=== PATIENT | female | born 1950 | race Caucasian/White ===

== ENCOUNTER → 2016-12-09 | Outpatient (CLI) | payer MEDICARE ==
[2016-12-09 15:52] LABS: APPEARANCE,URINE CLEAR; BILIRUBIN,URINE NEGATIVE (NEGATIVE); GLUCOSE, URINE NEGATIVE (NEGATIVE); KETONES,URINE NEGATIVE (NEGATIVE); LEUKOCYTE ESTERASE,URINE SMALL (NEGATIVE); NITRITE,URINE NEGATIVE (NEGATIVE); PROTEIN,URINE 100 mg/dL (NEGATIVE); URINE SPECIFIC GRAVITY 1.016; UROBILINOGEN,URINE NEGATIVE mg/dL (<2.0)
[2016-12-09 15:52] LABS: HEMOGLOBIN 12.7 g/dL (12.0-15.5); HGB HCT DIFFERENCE 0.1; MEAN CORPUSCULAR HEMOGLOBIN 29.8 pg (27.0-33.4); MEAN CORPUSCULAR HGB CONC 33.4 g/dL (32.0-36.0); MEAN CORPUSCULAR VOLUME 89 fl (80-97); RED BLOOD COUNT 4.25 10^6/uL (3.72-5.28); RED CELL DISTRIBUTION WIDTH 13.4 % (11.5-14.0); WHITE BLOOD COUNT 7.9 10^3/uL (4.0-10.5)
[2016-12-09 16:11] LABS: ANION GAP 14 (5-19); BLOOD UREA NITROGEN 23 mg/dL (7-20); CALCIUM 10.5 mg/dL (8.4-10.2); CARBON DIOXIDE 29 mmol/L (22-30); CHLORIDE 98 mmol/L (98-107); CREATININE RESULT 1.73 mg/dL (0.52-1.25); GLUCOSE 227 mg/dL (75-110); POTASSIUM 3.8 mmol/L (3.6-5.0); SODIUM 141.3 mmol/L (137-145)
--- NOTE | 2016-12-10 12:33 | EKG REPORT ---
SEVERITY:- ABNORMAL ECG - SINUS RHYTHM NONSPECIFIC T ABNORMALITIES, DIFFUSE LEADS LVH : Confirmed by: Rose Marie Puri 10-Dec-2016 12:31:55
== END ==
LOC: OD 14:38
PROVIDERS: ATTEND Orthopaedic Surgery
DX: Z01.818 Encounter for other preprocedural examination (principal); Z01.810 Encounter for preprocedural cardiovascular examination; Z01.811 Encounter for preprocedural respiratory examination; E11.9 Type 2 diabetes mellitus without complications; M17.12 Unilateral primary osteoarthritis, left knee; Z79.899 Other long term (current) drug therapy
CPT/HCPCS: 36415; 71020; 80048; 81001; 83036; 85027; 93005; 93010

== ENCOUNTER 2017-01-03 09:58 | Inpatient (IN) | payer MEDICARE ==
[~2017-01-03 09:58] MED LIST: BUPIVACAINE INJ/PF LIPOSOME/PF 266 MG/20 ML SDV IJ PRN; CEFAZOLIN INJ 1 GM VIAL IV PRN; GLYCOPYRROLATE INJ 0.4 MG/2 ML VIAL ONE; IBUPROFEN 800 MG in NORMAL SALINE 250 ML IV PRN; LACTATED RINGERS 1000 ML IV PRN; LANSOPRAZOLE 15 MG TAB.RAP.DR PO PRN; LIDOCAINE 0.5% INJ-PF (5 MG/ML) 50 ML SDV SUBCUT PRN; LIDOCAINE 2% INJ-PF (20 MG/ML) 10 ML AMPUL ONE; OXYCODONE HCL SR 10 MG TABLET PO PRN; SCOPOLAMINE HYDROBROMIDE 1.5 MG PATCH.TD72 TOP PRN; VANCOMYCIN HCL 1,000 MG in DEXTROSE 5%-WATER 250 ML IV PRN
[2017-01-03] MEDS ORDERED: (PENDING PHARMACY ID) (Melatonin [Melatonin] 10 MG) PO SCH (10:00)
[2017-01-03] MEDS ORDERED: FENTANYL CITRATE INJ/PF 100 MCG/2 ML AMPUL ONE (12:24)
[2017-01-03] MEDS ORDERED: MIDAZOLAM 2 MG/2 ML INJ ONE (12:25)
[2017-01-03] MEDS ORDERED: TRANEXAMIC ACID INJ/PF 1,000 MG/10 ML SDV IV ONE ×3 (12:25→21:30)
[2017-01-03] MEDS ORDERED: PROPOFOL INJ 200 MG/20 ML VIAL IV ONE (12:25)
[2017-01-03] MEDS ORDERED: DEXMEDETOMIDINE INJ 80 MCG/20 ML VIAL IV ONE (12:26)
[2017-01-03] MEDS ORDERED: BUPIVACAINE INJ/PF LIPOSOME/PF 266 MG/20 ML SDV ONE (12:58)
[2017-01-03] MEDS ORDERED: THROMBIN (BOVINE) 5000 UNIT EPITAXIS KIT ONE (12:58)
[2017-01-03] MEDS ORDERED: THROMBIN (BOVINE) TOPICAL 20000 UNIT VIAL ONE (12:58)
[2017-01-03] MEDS ORDERED: MEPERIDINE HCL/PF INJ 25 MG/1 ML DISP.SYRIN IV PRN (14:24)
[2017-01-03] MEDS ORDERED: FENTANYL CITRATE INJ/PF 100 MCG/2 ML AMPUL IV PRN ×3 (14:24)
[2017-01-03] MEDS ORDERED: OXYCODONE-ACETAMINOPHEN 5-325 MG TABLET PO PRN ×2 (14:24)
[2017-01-03] MEDS ORDERED: DIPHENHYDRAMINE HCL 50 MG/ML VIAL IV PRN ×2 (14:24→15:11)
[2017-01-03] MEDS ORDERED: MORPHINE SULFATE 10 MG/ML INJ IV PRN ×4 (14:24→15:11)
[2017-01-03] MEDS ORDERED: PROMETHAZINE HCL INJ 25 MG/1 ML VIAL IV PRN ×2 (14:24)
[2017-01-03] MEDS ORDERED: ACYCLOVIR 800 MG TABLET PO PRN (15:09)
[2017-01-03] MEDS ORDERED: UBIDECARENONE 100 MG PO PRN (15:09)
--- NOTE | 2017-01-03 15:09 | Operative Report ---
Operative Report DATE OF SURGERY: 01/03/17 PREOPERATIVE DIAGNOSIS: Left hip arthrosis OPERATION: Left hip arthroplasty SURGEON: GABRIELLE QUINTERO ANESTHESIA: Spinal TISSUE REMOVED OR ALTERED: Bone to pathology ESTIMATED BLOOD LOSS: 150 PROCEDURE: Implants used: Femur: Striker #5 Accolade to stem Acetabular shell:, 56 mm hemispherical shell Liner:, 36 mm flat cross-link polyethylene liner Head:. 36 mm chrome cobalt head +0 neck extension The patient is placed in a right lateral decubitus position on the operating table. The left lower extremity and hindquarter is prepped and draped in a sterile fashion. A curvilinear incision was made over the greater trochanter a posterior approach the hip was taken. The femoral head is dislocated and the femoral neck transected using an oscillating saw. Attention was next turned to the acetabulum. Soft tissues cleared off the acetabulum using electrocautery. The acetabulum was then prepared using a series of hemispherical reamers until a 55 millimeters reamer is seated. Subsequently a 56 millimeters Jacklyn titanium hemispherical shell is impacted into position and secured with one screw. A standard flat 36 millimeters cross- link liner is impacted into the shell. Attention was next turned to the femur. Access is gained to the femoral canal using a box osteotome to the piriformis fossa. The femur is then prepared using a series of broaches until a number 5 broach is seated. A trial reduction was now performed using a 36 millimeters head with, and standard neck. Preoperative leg length was recreated and is excellent anterior posterior stability. A decision was made to proceed with the above construct. All trial implants were removed. The wound is irrigated with pulsed lavage. A number 5 stem is impacted into the femoral canal. A trial reduction was again performed with a 36 mm head and a standard neck. Findings as previously. The hip was dislocated one last time and the final chrome-cobalt head is impacted onto the trunnion. The hip was reduced. Wound is copiously irrigated with pulsed lavage. Sent closed in layers using interrupted Vicryl followed by alfa. A sterile dressing is applied and the patient's returned to recovery room in satisfactory patient.
[2017-01-03] MEDS ORDERED: RINGERS SOLUTION,LACTATED 1,000 ML IV PRN (15:11)
[2017-01-03] MEDS ORDERED: ACETAMINOPHEN 325 MG TABLET PO PRN (15:11)
[2017-01-03] MEDS ORDERED: ZOLPIDEM TARTRATE 5 MG TABLET PO PRN (15:11)
[2017-01-03] MEDS ORDERED: ONDANSETRON 4 MG TAB.RAPDIS PO PRN (15:11)
[2017-01-03] MEDS ORDERED: ONDANSETRON HCL INJ/PF 4 MG/2 ML SDV IV PRN (15:11)
[2017-01-03] MEDS ORDERED: MAG HYDROX/AL HYDROX/SIMETH SUSP 30 ML UDCUP PO PRN (15:11)
[2017-01-03] MEDS ORDERED: MORPHINE SULFATE 10 MG/ML INJ IM PRN (15:11)
[2017-01-03] MEDS ORDERED: (PENDING PHARMACY ID) (Metformin Hcl [Metformin Hcl Er] 2,000 MG) PO SCH (15:15)
[2017-01-03] MEDS ORDERED: DEXTROSE 50%-WATER SYRINGE 12.5 GM/25 ML DOSE IV PRN (15:59)
[2017-01-03] MEDS ORDERED: GLUCAGON,HUMAN RECOMB 1 MG INJ IM PRN (15:59)
[2017-01-03] MEDS ORDERED: DEXTROSE 40% GEL 15 GM TUBE PO PRN (15:59)
[2017-01-03] MEDS ORDERED: INSULIN LISPRO 100 UNIT/ML 3 ML VIAL SUBCUT PRN (15:59)
[2017-01-03] MEDS ORDERED: DEXTROSE 40% GEL 15 GM TUBE X 2 PO PRN (15:59)
[2017-01-03] MEDS ORDERED: DEXTROSE 50%-WATER SYRINGE 25 GM/50 ML DOSE IV PRN (15:59)
[2017-01-03] MEDS ORDERED: NIACIN 500 MG PO SCH (18:00)
[2017-01-03] MEDS ORDERED: ASCORBIC ACID 400 MG PO SCH (18:00)
[2017-01-03] MEDS ORDERED: CARVEDILOL 12.5 MG TABLET PO SCH (18:00)
[2017-01-03] MEDS ORDERED: CINNAMON BARK 1000 MG PO SCH (18:00)
[2017-01-03] MEDS ORDERED: (PENDING PHARMACY ID) (Losartan/Hydrochlorothiazide [Hyzaar 100-25 Tablet] 1 EACH) PO SCH (18:00)
[2017-01-03] MEDS: OXYCODONE HCL IR 5 MG TABLET PO PRN (20:55)
[2017-01-03] MEDS: NIACIN 500 MG TABLET.SA PO SCH (21:43)
[2017-01-03] MEDS: ASCORBIC ACID 500 MG TABLET PO SCH (21:44)
[2017-01-03] MEDS: ATORVASTATIN CALCIUM 80 MG TABLET PO SCH (21:44)
[2017-01-03] MEDS: HYDROCHLOROTHIAZIDE 25 MG TABLET PO SCH (21:45)
[2017-01-03] MEDS: SENNOSIDES/DOCUSATE 8.6-50 MG 1 EACH TABLET PO SCH (21:45)
[2017-01-03] MEDS: OXYCODONE HCL SR 10 MG TABLET PO SCH (21:45)
[2017-01-03] MEDS: CARVEDILOL 12.5 MG TABLET PO SCH (21:46)
[2017-01-03] MEDS: CYANOCOBALAMIN (VITAMIN B-12) 1,000 MCG TABLET PO SCH (21:46)
[2017-01-03] MEDS: LOSARTAN POTASSIUM 50 MG TABLET PO SCH (21:47)
[2017-01-03] MEDS: MAGNESIUM OXIDE 400 MG TABLET PO SCH (21:47)
[2017-01-03] MEDS: RIVAROXABAN 10 MG TABLET PO SCH (21:49)
[2017-01-03] MEDS: IBUPROFEN 800 MG in NORMAL SALINE 250 ML IV SCH (21:49)
[2017-01-04] MEDS ORDERED: VANCOMYCIN HCL 1,000 MG in DEXTROSE 5%-WATER 250 ML IV ONE (03:00)
[2017-01-04] MEDS: IBUPROFEN 800 MG in NORMAL SALINE 250 ML IV SCH ×3 (05:20→22:01)
[2017-01-04 06:29] LABS: MEAN CORPUSCULAR HEMOGLOBIN 30.3 pg (27.0-33.4); MEAN CORPUSCULAR HGB CONC 34.4 g/dL (32.0-36.0); MEAN CORPUSCULAR VOLUME 88 fl (80-97); RED BLOOD COUNT 3.29 10^6/uL (3.72-5.28); RED CELL DISTRIBUTION WIDTH 13.4 % (11.5-14.0)
[2017-01-04] MEDS: LANSOPRAZOLE 30 MG TAB.RAP.DR PO SCH (06:41)
[2017-01-04 06:52] LABS: ANION GAP 10 (5-19); BLOOD UREA NITROGEN 13 mg/dL (7-20); CALCIUM 9.5 mg/dL (8.4-10.2); CARBON DIOXIDE 28 mmol/L (22-30); CHLORIDE 101 mmol/L (98-107); CREATININE RESULT 1.06 mg/dL (0.52-1.25); GLUCOSE 148 mg/dL (75-110); SODIUM 138.9 mmol/L (137-145)
[2017-01-04 06:55] LABS: POTASSIUM 2.9 mmol/L (3.6-5.0)
--- NOTE | 2017-01-04 06:58 | PDOC PROGRESS REPORT ---
Subjective Progress Note for:: 01/04/17 Subjective:: doing well pOd1 Physical Exam Vital Signs: Temp Pulse Resp BP Pulse Ox 100.0 F 97 17 135/62 H 97 01/04/17 03:00 01/04/17 03:00 01/04/17 03:00 01/04/17 03:00 01/04/17 03:00 Intake & Output 01/02/17 01/03/17 01/04/17 07:59 07:59 07:59 Intake Total 6368 Output Total 4475 Balance 1893 Weight 176 lb 9.444 oz General appearance: PRESENT: no acute distress Respiratory exam: PRESENT: clear to auscultation eyad Cardiovascular exam: ABSENT: diastolic murmur, irregular rhythm, systolic murmur GI/Abdominal exam: ABSENT: mass, organolmegaly, tenderness Extremities exam: ABSENT: pedal edema Neurological exam: PRESENT: oriented to situation Psychiatric exam: PRESENT: appropriate affect Results Laboratory Results: 01/04/17 05:37 01/03/17 01/03/17 01/03/17 10:58 10:58 10:58 WBC RBC Hgb Hct MCV MCH MCHC RDW Plt Count Potassium 3.5 L Glucose 145 H Blood Type A POSITIVE Antibody Screen NEGATIVE 01/04/17 05:37 WBC 9.0 RBC 3.29 L Hgb 10.0 L Hct 29.0 L MCV 88 MCH 30.3 MCHC 34.4 RDW 13.4 Plt Count 185 Potassium Glucose Blood Type Antibody Screen Abnormal - 24 hr 01/03/17 01/03/17 01/03/17 10:58 10:58 22:28 RBC Hgb Hct Potassium 3.5 L Glucose 145 H POC Glucose 169 H 01/04/17 01/04/17 05:37 05:38 RBC 3.29 L Hgb 10.0 L Hct 29.0 L Potassium Glucose POC Glucose 157 H Impressions: Pelvis X-Ray 01/03/17 15:12 IMPRESSION: SATISFACTORY POSTOPERATIVE PELVIS. Assessment & Plan - Diagnosis (1) Type 2 diabetes mellitus without complications Qualifiers: Diabetes mellitus continuous churn buttermaker insulin use: without continuous churn buttermaker use Qualified Code(s): E11.9 - Type 2 diabetes mellitus without complications Is this a current diagnosis for this admission?: YesPlan: resume metformin (2) Essential (primary) hypertension Is this a current diagnosis for this admission?: YesPlan: continue meds
--- NOTE | 2017-01-04 07:03 | PDOC PROGRESS REPORT ---
Subjective Progress Note for:: 01/04/17 Subjective:: Patient with minor complaints of discomfort. Physical Exam Vital Signs: Temp Pulse Resp BP Pulse Ox 37.8 C 97 17 135/62 H 97 01/04/17 03:00 01/04/17 03:00 01/04/17 03:00 01/04/17 03:00 01/04/17 03:00 Intake & Output 01/03/17 01/04/17 01/05/17 06:59 06:59 06:59 Intake Total 6368 Output Total 4475 Balance 1893 Weight 80.1 kg General appearance: PRESENT: no acute distress Head exam: PRESENT: normocephalic Eye exam: PRESENT: EOMI Respiratory exam: PRESENT: unlabored Cardiovascular exam: PRESENT: RRR Pulses: PRESENT: +1 pedal pulses bilateral Vascular exam: PRESENT: normal capillary refill GI/Abdominal exam: PRESENT: soft Rectal exam: PRESENT: deferred Extremities exam: PRESENT: other - Left hip dressing clean dry and intact. Leg lengths equal. Distal neurovascular examinations intact. Neurological exam: PRESENT: alert, awake, oriented to person, oriented to place , oriented to time, oriented to situation. ABSENT: motor sensory deficit Psychiatric exam: PRESENT: appropriate affect, normal mood. ABSENT: homicidal ideation, suicidal ideation Results Laboratory Results: 01/04/17 05:37 01/04/17 05:37 01/03/17 01/03/17 01/03/17 10:58 10:58 10:58 WBC RBC Hgb Hct MCV MCH MCHC RDW Plt Count Sodium Potassium 3.5 L Chloride Carbon Dioxide Anion Gap BUN Creatinine Est GFR ( Amer) Est GFR (Non-Af Amer) Glucose 145 H Calcium Blood Type A POSITIVE Antibody Screen NEGATIVE 01/04/17 01/04/17 05:37 05:37 WBC 9.0 RBC 3.29 L Hgb 10.0 L Hct 29.0 L MCV 88 MCH 30.3 MCHC 34.4 RDW 13.4 Plt Count 185 Sodium 138.9 Potassium 2.9 L* Chloride 101 Carbon Dioxide 28 Anion Gap 10 BUN 13 Creatinine 1.06 Est GFR ( Amer) > 60 Est GFR (Non-Af Amer) 52 L Glucose 148 H Calcium 9.5 Blood Type Antibody Screen Impressions: Pelvis X-Ray 01/03/17 15:12 IMPRESSION: SATISFACTORY POSTOPERATIVE PELVIS. Status: Imported from PACS Assessment & Plan - Diagnosis (1) Arthritis of left hip Is this a current diagnosis for this admission?: YesPlan: 66-year-old white female postop day 1 from left hip arthroplasty. Patient's an uneventful postoperative course. The patient's primary care physician is been consult for assistance with perioperative management area But limited physical therapy because of persistence of spinal anesthesia yesterday afternoon. Plan will be for aggressive physical therapy and discharge home tomorrow with home health services. - Time Time Spent with patient: 15-24 minutes Anticipated discharge: Home with Homehealth Within: within 24 hours
[2017-01-04] MEDS ORDERED: (PENDING PHARMACY ID) (Omega-3 Fatty Acids/Fish Oil [Omega 3 Fish Oil Softgel] 1 EACH) PO SCH (08:00)
[2017-01-04] MEDS ORDERED: TURMERIC ROOT EXTRACT 500 MG PO SCH (08:00)
[2017-01-04] MEDS ORDERED: BETA CAROTENE PO SCH (08:00)
[2017-01-04] MEDS ORDERED: (PENDING PHARMACY ID) (Iron [Iron] 65 MG) PO SCH (08:00)
[2017-01-04] MEDS: OMEGA-3 ACID ETHYL ESTERS 1 GM CAPSULE PO SCH (08:39)
[2017-01-04] MEDS: OXYCODONE HCL IR 5 MG TABLET PO PRN (08:40)
[2017-01-04] MEDS: FERROUS SULFATE 325 MG TABLET PO SCH (08:41)
[2017-01-04] MEDS: METFORMIN HCL 500 MG TABLET PO SCH ×2 (08:43→18:07)
[2017-01-04] MEDS: AMLODIPINE BESYLATE 10 MG TABLET PO SCH (08:43)
[2017-01-04] MEDS: PIOGLITAZONE HCL 15 MG TABLET PO SCH (08:43)
[2017-01-04] MEDS ORDERED: (PENDING PHARMACY ID) (Zinc [Zinc] 50 MG) PO SCH (10:00)
[2017-01-04] MEDS ORDERED: SELENIUM 200 MCG PO SCH (10:00)
[2017-01-04] MEDS: PRENATAL VITAMIN W-O CA NO5/FE FUMARATE/FA CAPSULE PO SCH (11:30)
[2017-01-04] MEDS: OXYCODONE HCL SR 10 MG TABLET PO SCH ×2 (11:31→21:50)
[2017-01-04] MEDS: SENNOSIDES/DOCUSATE 8.6-50 MG 1 EACH TABLET PO SCH ×2 (11:32→18:02)
[2017-01-04] MEDS: ZINC SULFATE 220 MG CAPSULE PO SCH (11:32)
[2017-01-04] MEDS: CARVEDILOL 12.5 MG TABLET PO SCH ×2 (11:34→21:51)
[2017-01-04] MEDS: ATORVASTATIN CALCIUM 80 MG TABLET PO SCH (17:59)
[2017-01-04] MEDS: NIACIN 500 MG TABLET.SA PO SCH (17:59)
[2017-01-04] MEDS: MAGNESIUM OXIDE 400 MG TABLET PO SCH (18:00)
[2017-01-04] MEDS: LOSARTAN POTASSIUM 50 MG TABLET PO SCH (18:00)
[2017-01-04] MEDS: HYDROCHLOROTHIAZIDE 25 MG TABLET PO SCH (18:02)
[2017-01-04] MEDS: CYANOCOBALAMIN (VITAMIN B-12) 1,000 MCG TABLET PO SCH (18:02)
[2017-01-04] MEDS: ASCORBIC ACID 500 MG TABLET PO SCH (18:02)
[2017-01-04] MEDS: RIVAROXABAN 10 MG TABLET PO SCH (22:01)
[2017-01-05 04:46] LABS: HEMATOCRIT 28.8 % (36.0-47.0); HEMOGLOBIN 9.8 g/dL (12.0-15.5); HGB HCT DIFFERENCE 0.6; MEAN CORPUSCULAR HEMOGLOBIN 29.9 pg (27.0-33.4); MEAN CORPUSCULAR HGB CONC 33.9 g/dL (32.0-36.0); MEAN CORPUSCULAR VOLUME 88 fl (80-97); RED BLOOD COUNT 3.26 10^6/uL (3.72-5.28); RED CELL DISTRIBUTION WIDTH 13.3 % (11.5-14.0); WHITE BLOOD COUNT 12.7 10^3/uL (4.0-10.5)
[2017-01-05] MEDS: IBUPROFEN 800 MG in NORMAL SALINE 250 ML IV SCH ×2 (06:12→13:08)
[2017-01-05] MEDS: LANSOPRAZOLE 30 MG TAB.RAP.DR PO SCH (06:13)
--- NOTE | 2017-01-05 07:27 | PDOC PROGRESS REPORT ---
Subjective Progress Note for:: 01/05/17 Subjective:: Patient complains of being unable to actively flex her left hip against gravity Physical Exam Vital Signs: Temp Pulse Resp BP Pulse Ox 36.6 C 80 18 96/69 L 80 L 01/04/17 23:43 01/04/17 23:43 01/04/17 23:43 01/04/17 23:43 01/04/17 23:43 Intake & Output 01/04/17 01/05/17 01/06/17 06:59 06:59 06:59 Intake Total 6368 1100 Output Total 4475 Balance 1893 1100 Weight 80.1 kg 78.6 kg General appearance: PRESENT: no acute distress Head exam: PRESENT: normocephalic Eye exam: PRESENT: EOMI Respiratory exam: PRESENT: unlabored Cardiovascular exam: PRESENT: RRR Pulses: PRESENT: +1 pedal pulses bilateral Vascular exam: PRESENT: normal capillary refill GI/Abdominal exam: PRESENT: soft Rectal exam: PRESENT: deferred Extremities exam: PRESENT: other - Left hip dressing clean dry and intact. Leg lengths are equal. Distal neurovascular examinations intact. Neurological exam: PRESENT: alert, awake, oriented to person, oriented to place , oriented to time, oriented to situation, CN II-XII grossly intact. ABSENT: motor sensory deficit Psychiatric exam: PRESENT: appropriate affect, normal mood. ABSENT: homicidal ideation, suicidal ideation Skin exam: PRESENT: dry, intact, warm. ABSENT: cyanosis, rash Results Laboratory Results: 01/05/17 04:33 01/04/17 05:37 01/05/17 04:33 WBC 12.7 H RBC 3.26 L Hgb 9.8 L Hct 28.8 L MCV 88 MCH 29.9 MCHC 33.9 RDW 13.3 Plt Count 193 Impressions: Pelvis X-Ray 01/03/17 15:12 IMPRESSION: SATISFACTORY POSTOPERATIVE PELVIS. Assessment & Plan - Diagnosis (1) Arthritis of left hip Is this a current diagnosis for this admission?: YesPlan: Patient with rather limited progress with physical therapy. Plan will be to extend her stay for additional day to allow for further physical therapy. Anticipate discharge home tomorrow with home health nursing, home health physical therapy. - Time Time Spent with patient: 15-24 minutes Anticipated discharge: Home with Homehealth Within: within 24 hours
[2017-01-05] MEDS ORDERED: POTASSIUM CHLORIDE 10 MEQ TABLET.SA PO ONE (07:30)
[2017-01-05] MEDS: OMEGA-3 ACID ETHYL ESTERS 1 GM CAPSULE PO SCH (08:01)
[2017-01-05] MEDS: FERROUS SULFATE 325 MG TABLET PO SCH (08:02)
[2017-01-05] MEDS: PIOGLITAZONE HCL 15 MG TABLET PO SCH (08:02)
[2017-01-05] MEDS: AMLODIPINE BESYLATE 10 MG TABLET PO SCH (08:02)
[2017-01-05] MEDS: METFORMIN HCL 500 MG TABLET PO SCH ×2 (08:03→16:45)
--- NOTE | 2017-01-05 08:16 | PDOC PROGRESS REPORT ---
Subjective Progress Note for:: 01/05/17 Subjective:: walking but hip hurts too much to flex Physical Exam Vital Signs: Temp Pulse Resp BP Pulse Ox 98.1 F 96 14 130/58 H 96 01/05/17 07:24 01/05/17 07:24 01/05/17 07:24 01/05/17 07:24 01/05/17 07:24 Intake & Output 01/04/17 01/05/17 01/06/17 07:59 07:59 07:59 Intake Total 6368 1100 Output Total 4475 Balance 1893 1100 Weight 176 lb 9.444 oz 173 lb 4.533 oz General appearance: PRESENT: no acute distress Respiratory exam: PRESENT: clear to auscultation eyad Cardiovascular exam: ABSENT: diastolic murmur, irregular rhythm, systolic murmur GI/Abdominal exam: ABSENT: mass, organolmegaly, tenderness Extremities exam: ABSENT: pedal edema Neurological exam: PRESENT: oriented to situation Psychiatric exam: PRESENT: appropriate affect Results Laboratory Results: 01/05/17 04:33 01/04/17 05:37 01/05/17 04:33 WBC 12.7 H RBC 3.26 L Hgb 9.8 L Hct 28.8 L MCV 88 MCH 29.9 MCHC 33.9 RDW 13.3 Plt Count 193 Impressions: Pelvis X-Ray 01/03/17 15:12 IMPRESSION: SATISFACTORY POSTOPERATIVE PELVIS. Assessment & Plan - Diagnosis (1) Type 2 diabetes mellitus without complications Qualifiers: Diabetes mellitus mcc insulin use: without mcc use Qualified Code(s): E11.9 - Type 2 diabetes mellitus without complications Is this a current diagnosis for this admission?: Yes (2) Essential (primary) hypertension Is this a current diagnosis for this admission?: YesPlan: bp low last pm. Stopping carvedilol for now. K down. Gave 20meq. On losartan.
[2017-01-05] MEDS: ZINC SULFATE 220 MG CAPSULE PO SCH (09:26)
[2017-01-05] MEDS: OXYCODONE HCL SR 10 MG TABLET PO SCH (09:26)
[2017-01-05] MEDS: PRENATAL VITAMIN W-O CA NO5/FE FUMARATE/FA CAPSULE PO SCH (09:26)
[2017-01-05] MEDS: SENNOSIDES/DOCUSATE 8.6-50 MG 1 EACH TABLET PO SCH ×2 (09:26→17:13)
[2017-01-05] MEDS: MAGNESIUM OXIDE 400 MG TABLET PO SCH (17:12)
[2017-01-05] MEDS: CYANOCOBALAMIN (VITAMIN B-12) 1,000 MCG TABLET PO SCH (17:12)
[2017-01-05] MEDS: NIACIN 500 MG TABLET.SA PO SCH (17:13)
[2017-01-05] MEDS: LOSARTAN POTASSIUM 50 MG TABLET PO SCH (17:13)
[2017-01-05] MEDS: HYDROCHLOROTHIAZIDE 25 MG TABLET PO SCH (17:13)
[2017-01-05] MEDS: ATORVASTATIN CALCIUM 80 MG TABLET PO SCH (17:13)
[2017-01-05] MEDS: ASCORBIC ACID 500 MG TABLET PO SCH (17:13)
[2017-01-05] MEDS: RIVAROXABAN 10 MG TABLET PO SCH (21:22)
[2017-01-06] MEDS: LANSOPRAZOLE 30 MG TAB.RAP.DR PO SCH (05:03)
[2017-01-06 06:01] LABS: HEMATOCRIT 26.8 % (36.0-47.0); HGB HCT DIFFERENCE 0.2; MEAN CORPUSCULAR HEMOGLOBIN 30.1 pg (27.0-33.4); MEAN CORPUSCULAR HGB CONC 33.7 g/dL (32.0-36.0); MEAN CORPUSCULAR VOLUME 89 fl (80-97); RED CELL DISTRIBUTION WIDTH 13.4 % (11.5-14.0); WHITE BLOOD COUNT 10.7 10^3/uL (4.0-10.5)
[2017-01-06] MEDS: OXYCODONE HCL IR 5 MG TABLET PO PRN (06:53)
--- NOTE | 2017-01-06 06:55 | PDOC DISCHARGE SUMMARY ---
General - Admit/Disc Date/PCP Admission Date/Primary Care Provider: 01/03/17 10:24 CLAUDE HULL MD Discharge Date: 01/06/17 - Discharge Diagnosis (1) Arthritis of left hip Is this a current diagnosis for this admission?: YesSummary: Patient is a 66-year-old white female with progressive left hip pain and functional disability - Additional Information Resuscitation Status: Full Code Discharge Diet: As Tolerated, Regular Discharge Activity: Activity As Tolerated, Balance Activity w/Rest Home Medications: Acyclovir [Zovirax 800 mg Tablet] 800 mg PO ASDIR PRN 12/22/16 Amlodipine Besylate [Norvasc 10 mg Tablet] 10 mg PO QAM 12/22/16 Ascorbic Acid [Vitamin C] 400 mg PO QPM 12/22/16 Aspirin 325 mg PO DAILY 12/22/16 Atorvastatin Calcium [Lipitor 80 mg Tablet] 80 mg PO QPM 12/22/16 Beta-Carotene [Beta Carotene 18372 unit Capsule] 1 cap PO QAM 12/22/16 Carvedilol [Coreg] 12.5 mg PO BID 12/22/16 Cinnamon Bark [Cinnamon Bark 500 mg Capsule] 1,000 mg PO QPM 12/22/16 Cyanocobalamin (Vitamin B-12) [Vitamin B-12] 1,000 mcg PO QPM 12/22/16 Iron 65 mg PO QAM 12/22/16 Losartan/Hydrochlorothiazide [Hyzaar 100-25 Tablet] 1 each PO QPM 12/22/16 Magnesium Oxide 400 mg PO QPM 12/22/16 Melatonin 10 mg PO QPM 12/22/16 Metformin HCl [Metformin HCl ER] 2,000 mg PO ASDIR 12/22/16 Niacin 500 mg PO QPM 12/22/16 Fords-3 Fatty Acids/Fish Oil [Fords 3 Fish Oil Softgel] 1 each PO QAM 12/22/16 Pioglitazone HCl 15 mg PO QAM 12/22/16 Selenium 200 mcg PO DAILY 12/22/16 Turmeric Root Extract [Turmeric] 500 mg PO QAM 12/22/16 Ubidecarenone [Co Q10] 100 mg PO ASDIR PRN 12/22/16 Zinc 50 mg PO DAILY 12/22/16 Oxycodone HCl [Oxy-Ir 5 mg Tablet] 5 mg PO Q6HP PRN #0 tablet 01/06/17 Rivaroxaban [Xarelto 10 mg Tablet] 10 mg PO QHS #0 tablet 01/06/17 History of Present Illness Patient complains of: Left hip pain History of Present Illness: BARBARA CHRISTIANSON is a 66 year old female patient's a little admitted for an elective left hip arthroplasty Hospital Course Hospital Course: Patient submitted to the operating room where she undergoes an uncomplicated left hip arthroplasty. She's returned to floor in satisfactory condition. She makes excellent progress with physical therapy. She substrate for discharge home on postop day #3 with home health nursing, home health physical therapy, we 'll Walker, bedside commode. Physical Exam Vital Signs: Temp Pulse Resp BP Pulse Ox 36.8 C 95 17 124/59 L 97 01/05/17 23:17 01/05/17 23:17 01/05/17 23:17 01/05/17 23:17 01/05/17 23:17 Intake & Output 01/04/17 01/05/17 01/06/17 06:59 06:59 06:59 Intake Total 6368 1100 700 Output Total 4475 1400 Balance 1893 1100 -700 Weight 80.1 kg 78.6 kg 79.6 kg General appearance: PRESENT: no acute distress, well-developed, well-nourished Head exam: PRESENT: normocephalic Eye exam: PRESENT: EOMI Respiratory exam: PRESENT: unlabored Cardiovascular exam: PRESENT: RRR Pulses: PRESENT: +1 pedal pulses bilateral Vascular exam: PRESENT: normal capillary refill GI/Abdominal exam: PRESENT: soft Rectal exam: PRESENT: deferred Extremities exam: PRESENT: other - Left hip dressing clean dry and intact. Leg lengths are equal. Distal neurovascular examinations intact. Neurological exam: PRESENT: alert, awake, oriented to person, oriented to place , oriented to time, oriented to situation. ABSENT: motor sensory deficit Psychiatric exam: PRESENT: appropriate affect, normal mood. ABSENT: homicidal ideation, suicidal ideation Skin exam: PRESENT: dry, intact, warm. ABSENT: cyanosis, rash Results Laboratory Results: 01/06/17 05:11 01/04/17 05:37 01/06/17 05:11 WBC 10.7 H RBC 3.00 L Hgb 9.0 L Hct 26.8 L MCV 89 MCH 30.1 MCHC 33.7 RDW 13.4 Plt Count 193 Impressions: Pelvis X-Ray 01/03/17 15:12 IMPRESSION: SATISFACTORY POSTOPERATIVE PELVIS. Status: Imported from PACS Plan Discharge Plan: Patient be discharged home with home health nursing, home health physical therapy, we'll Walker, bedside commode. Patient will follow-up with Dr. Davis at the [facility] for surgery in 2 weeks for staple removal. Time Spent: Less than 30 Minutes
--- NOTE | 2017-01-06 07:35 | PDOC PROGRESS REPORT ---
Subjective Progress Note for:: 01/06/17 Subjective:: can flex hip 45deg. Wants home Physical Exam Vital Signs: Temp Pulse Resp BP Pulse Ox 98.3 F 95 17 124/59 L 97 01/05/17 23:17 01/05/17 23:17 01/05/17 23:17 01/05/17 23:17 01/05/17 23:17 Intake & Output 01/04/17 01/05/17 01/06/17 07:59 07:59 07:59 Intake Total 6368 1100 700 Output Total 4475 1400 Balance 1893 1100 -700 Weight 176 lb 9.444 oz 173 lb 4.533 oz 175 lb 7.807 oz General appearance: PRESENT: no acute distress Respiratory exam: PRESENT: clear to auscultation eyad Cardiovascular exam: ABSENT: diastolic murmur, irregular rhythm, systolic murmur GI/Abdominal exam: ABSENT: mass, organolmegaly, tenderness Extremities exam: ABSENT: pedal edema Neurological exam: PRESENT: oriented to situation Psychiatric exam: PRESENT: appropriate affect Results Laboratory Results: 01/06/17 05:11 01/04/17 05:37 01/06/17 05:11 WBC 10.7 H RBC 3.00 L Hgb 9.0 L Hct 26.8 L MCV 89 MCH 30.1 MCHC 33.7 RDW 13.4 Plt Count 193 EKG Comments: Labs- Last Values WBC 10.7 10^3/uL (4.0-10.5) H 01/06/17 05:11 RBC 3.00 10^6/uL (3.72-5.28) L 01/06/17 05:11 Hgb 9.0 g/dL (12.0-15.5) L 01/06/17 05:11 Hct 26.8 % (36.0-47.0) L 01/06/17 05:11 MCV 89 fl (80-97) 01/06/17 05:11 MCH 30.1 pg (27.0-33.4) 01/06/17 05:11 MCHC 33.7 g/dL (32.0-36.0) 01/06/17 05:11 RDW 13.4 % (11.5-14.0) 01/06/17 05:11 Plt Count 193 10^3/uL (150-450) 01/06/17 05:11 Sodium 138.9 mmol/L (137-145) 01/04/17 05:37 Potassium 2.9 mmol/L (3.6-5.0) L* 01/04/17 05:37 Chloride 101 mmol/L (98-107) 01/04/17 05:37 Carbon Dioxide 28 mmol/L (22-30) 01/04/17 05:37 Anion Gap 10 (5-19) 01/04/17 05:37 BUN 13 mg/dL (7-20) 01/04/17 05:37 Creatinine 1.06 mg/dL (0.52-1.25) 01/04/17 05:37 Est GFR ( Amer) > 60 (>60) 01/04/17 05:37 Est GFR (Non-Af Amer) 52 (>60) L 01/04/17 05:37 Glucose 148 mg/dL (75-110) H 01/04/17 05:37 POC Glucose 152 mg/dL (70-110) H 01/06/17 06:42 Calcium 9.5 mg/dL (8.4-10.2) 01/04/17 05:37 Blood Type A POSITIVE 01/03/17 10:58 Antibody Screen NEGATIVE 01/03/17 10:58 Impressions: Pelvis X-Ray 01/03/17 15:12 IMPRESSION: SATISFACTORY POSTOPERATIVE PELVIS. Assessment & Plan - Diagnosis (1) Type 2 diabetes mellitus without complications Qualifiers: Diabetes mellitus middle or intermediate school principal insulin use: without half-way use Qualified Code(s): E11.9 - Type 2 diabetes mellitus without complications Is this a current diagnosis for this admission?: Yes (2) Essential (primary) hypertension Is this a current diagnosis for this admission?: YesPlan: bp ok. Home on old meds. (3) Anemia, blood loss Is this a current diagnosis for this admission?: YesPlan: preOp hct38. Now 27. Expect will improve - Plan Summary Plan Summary: has ov in 5m
[2017-01-06] MEDS: AMLODIPINE BESYLATE 10 MG TABLET PO SCH (08:22)
[2017-01-06] MEDS: PIOGLITAZONE HCL 15 MG TABLET PO SCH (08:23)
[2017-01-06] MEDS: FERROUS SULFATE 325 MG TABLET PO SCH (08:23)
[2017-01-06] MEDS: OMEGA-3 ACID ETHYL ESTERS 1 GM CAPSULE PO SCH (08:23)
[2017-01-06] MEDS: METFORMIN HCL 500 MG TABLET PO SCH (08:23)
[2017-01-06 08:56] VITALS: BP 146/64
== END 2017-01-06 10:21 | disposition home health service (06) | DRG 470 ==
LOC: INOR 10:24 → 4S 17:28
PROVIDERS: ADMIT Orthopaedic Surgery; ATTEND Orthopaedic Surgery
PROC: 0SRB02A Replacement of Left Hip Joint with Metal on Polyethylene Synthetic Substitute, Uncemented, Open Approach (ICD-10-PCS; principal; 2017-01-03 12:30)
DX: M16.12 Unilateral primary osteoarthritis, left hip (principal); E11.9 Type 2 diabetes mellitus without complications; I10 Essential (primary) hypertension; D50.0 Iron deficiency anemia secondary to blood loss (chronic); E78.00 Pure hypercholesterolemia, unspecified; Z96.641 Presence of right artificial hip joint
CPT/HCPCS: 01214; 36415; 72170; 80048; 82947; 82962; 84132; 85027; 86850; 86900; 86901; 88304; 88311; 94799; C1713; C9290; G8978-GP; G8979-GP; G8987-GO; G8988-GO; J0690; J1741; J2250; J2704; J3010; J3370; J3490; J7050; J7060; S0119